=== PATIENT | female | born 1975 | race African-American/Black ===

== ENCOUNTER 2016-10-03 19:37 | Emergency (ER) | payer BC, OTHER ==
[~2016-10-03] VITALS: Ht 167.6 cm; Wt 122.0 kg
[~2016-10-03 19:37] MED LIST: IBUP600T26 PO; ROBA750T3 PO
[2016-10-03 19:41] VITALS: BP 184/99; PULSE 92; RESP 14; TEMP 98.2; O2SAT 98
--- NOTE | 2016-10-03 21:07 | PD ---
HPI Chief Complaint: Lump, Cyst, Hernia Time Seen by Provider: 21:02 Travel History International Travel<30 days: No Contact w/Intl Traveler<30days: No Traveled to known affect area: No History of Present Illness HPI Patient comes in complaining of a lump on the back of her head that has been there for 5 days. Patient states that she thought that it was just a hair bump and she squeezed it got a little bit of pus out. Patient reports she has been squeezing it regularly since getting a small amount of pus out each time. Patient states somewhat larger and becoming more painful. Patient states also reports using warm compresses with no improvement in her symptoms. Patient denies any fevers, nausea, vomiting, or radiation of the pain. PFSH Past Medical History Medical History: Denies Significant Hx Blood Disorders: No Cardiovascular Problems: No Chemotherapy: No Glaucoma: No Genitourinary: No Musculoskeletal: No Neurologic: No Psychiatric: No Reproductive: No Respiratory: No ?: Not LMP: TUBAL : 2 Para: 1 Dilation and Curettage (D&C): Yes Past Surgical History Section: Yes (X2) Gynecologic Surgery: Yes Pacemaker: No Social History Alcohol Use: Yes (OCCASIONALLY) Tobacco Use: No Substance Use: No Allergies-Medications (Allergen,Severity, Reaction): Coded Allergies: No Known Allergies (Verified , 10/03/16) Reported Meds & Prescriptions Reported Meds & Active Scripts Active Keflex (Cephalexin) 500 Mg Cap 500 Mg PO Q8H Bactrim DS (Sulfamethoxazole-Trimethoprim) 800-160 Mg Tab 1 Tab PO BID Review of Systems Except as stated in HPI: all other systems reviewed are Neg Physical Exam Narrative GENERAL: Well-developed, overly nourished, in no acute distress, and non-ill appearing. SKIN: Warm and dry. Patient has early abscess noted in the inferior aspect of the occipital lobe is indurated without fluctuation. There is no drainage is mildly tender to palpation. There is no crepitus. HEAD: Atraumatic. Normocephalic. EYES: Pupils equal and round. EOMI. No scleral icterus. No injection or drainage. ENT: No nasal bleeding or discharge. Mucous membranes pink and moist. NECK: Trachea midline. Supple. No nuclear rigidity. RESPIRATORY: No accessory muscle use. No respiratory distress. MUSCULOSKELETAL: No obvious deformities. No clubbing. No cyanosis. No edema. Full range of motion. NEUROLOGICAL: Awake and alert. No obvious cranial nerve deficits. Motor grossly within normal limits. Normal speech. PSYCHIATRIC: Appropriate mood and affect; insight and judgment normal. Data Data Last Documented VS Vital Signs Date Time Temp Pulse Resp B/P Pulse Ox O2 Delivery O2 Flow Rate FiO2 10/03/16 21:43 16 10/03/16 19:41 98.2 92 184/99 98 Room Air Orders Sulfamet-Trimeth Ds 800-160 Mg (Bactrim (10/03/16 21:15) Cephalexin (Keflex) (10/03/16 21:15) MDM Medical Decision Making Medical Screen Exam Complete: Yes Emergency Medical Condition: Yes Differential Diagnosis Abscess, cellulitis, folliculitis, hypertension, other Narrative Course The patient has no evidence of obvious abscess at this time. The patient will be discharged on antibiotics for cellulitis with possible early/immature abscess. Clinical suspicion, diagnosis and care management was discussed. The patient was given signs and symptoms warnings for worsening infection, such as spreading of redness, increasing pain, and/or swelling, associated heat, pus or fever and instructed to return immediately if these signs or symptoms worsen. The patient is to return in 2 days for recheck for maturity. Sooner if worsens or as needed. The patient agrees with plan. The patient was found during their evaluation to have elevated blood pressures. The patient has no prior history of hypertension. The patient has no symptoms as well. The patient denied headache, changes in vision, nausea, vomiting, dizziness, weakness or loss of sensation. The patient denied and chest, back or abdominal pain. The patient also denied any shortness of breath, dyspnea on exertion, orthopnea or PND. The patient denies any edema to extremities. The patients blood pressures at discharge were at an acceptable level. I discussed with the patient that the standard of care is to not initiate antihypertensive medications at this time and for them to follow up with a primary care physician for continued outpatient evaluation, establish diagnosis of hypertension and potential initiation of blood pressure medications. Return warnings were given to the patient and the patient agreed with plan of care. Patient in no obvious distress upon re-evaluation. Patient was asked if they wanted to speak to my attending, which the patient did not wish to do at this time. Any questions/concerns in reference to patient diagnosis/condition discussed and clarified prior to patient's discharge. Reinforced sheer importance of close follow up with patient's primary physician or primary care clinic. Instructed patient to return to ED immediately, if symptoms return/ worsen. Pt showed understanding of above instructions. Further instructions and recommendations were detailed in discharge paperwork. Pt ambulated without difficulty out of ED at discharge. Diagnosis Primary Impression: Cellulitis Qualified Code: L03.811 - Cellulitis of head except face Additional Impression: Elevated blood pressure reading Referrals: [facility] Patient Instructions: Abscess (GEN), Cellulitis (ED), General Instructions, Hypertension (ED) Additional Instructions: Follow-up with your primary care physician or return here in 2 days for recheck. Follow-up with your primary care physician as soon as possible for re- evaluation of elevated blood pressure noted here today. Take all medication as prescribed. Apply warm compresses to affected area frequently to facilitate drainage. Return to the emergency department if symptoms get worse. Med/Other Pt SpecificInfo: Prescription(s) given Scripts Cephalexin (Keflex)500 Mg [id number] Mg PO Q8H #30 CAP Ref 0 Prov:Alicia Escobar MD 10/03/16 Sulfamethoxazole-Trimethoprim (Bactrim DS)800-160 Mg Tab1 Tab PO BID #20 TAB Ref 0 Prov:Alicia Escobar MD 10/03/16 Disposition: 01 DISCHARGE HOME Condition: Stable Leonel Estrada Oct 03, 2016 21:07
[2016-10-03] MEDS ORDERED: CEPHALEXIN MONOHYDRATE 500 MG CAP PO ONE (21:15)
[2016-10-03] MEDS ORDERED: SULFAMETHOXAZOLE-TRIMETHOPRIM DS 800-160 MG TAB PO ONE (21:15)
[2016-10-03] MEDS ORDERED: BACT800T5 PO (21:31)
[2016-10-03] MEDS ORDERED: CEPH-460 PO (21:31)
== END 2016-10-03 21:45 | disposition home or self-care (01) ==
LOC: NEPB 19:37
DX: L03.811 Cellulitis of head [any part, except face] (principal); R03.0 Elevated blood-pressure reading, without diagnosis of hypertension
CPT/HCPCS: 99283